=== PATIENT | male | born 1980 ===

== ENCOUNTER 2016-11-09 10:51 | Emergency (ER) | payer MEDICAID ==
[~2016-11-09] VITALS: Ht 167.6 cm; Wt 65.9 kg
[~2016-11-09 10:51] MED LIST: OXYC-302 PO
[2016-11-09 10:56] VITALS: BP 124/74; PULSE 85; RESP 20; O2SAT 100
--- NOTE | 2016-11-09 11:37 | DRSVH ---
PROCEDURE: X-RAY LEFT RIBS, TWO VIEWS ([id number]) INDICATIONS: trauma, pain. TECHNIQUE: 2 views of the left ribs were acquired. COMPARISON: None. FINDINGS: Surgical changes and devices: None. Bones and chest wall: No fractures or dislocations. No suspicious bony lesions. Overlying soft tis sues appear unremarkable. Lungs and pleura: The visualized lung appears clear. No pleural effusions or pneumothorax are visib le. IMPRESSION: No displaced rib fractures identified. Dictated by: Abbi Douglass MD, PhD on 11/09/2016 at 11:32 Approved by: Abbi Douglass MD, PhD on 11/09/2016 at 11:36
--- NOTE | 2016-11-09 11:55 | ED.REPORT ---
HPI-Dental/Mouth Prob Date of Service Nov 09, 2016 ED Provider: Doc,Ed MD History of Present Illness: leaning over dumpster and had left rib pain, Did not fall into dumpster. happened 2 days ago[facility] ususally comes to the ER. Has cavities, states Mom keeps him too busy to go to the dentist. Nursing Notes Stated Complaint: RIB PAIN/UPPER JAW PAIN Chief Complaint: General Complaint Allergies: Coded Allergies: No Known Allergies (Verified , 11/09/16) No Active Prescriptions or Reported Meds General Time Seen by MD: 11:55 Chief Complaint Mouth pain, Other (rib pain) Hx Obtained From: Patient Onset Occurred: 2 days ago Symptom Duration: Since onset Past Medical History Past Medical History Kidney stone Otherwise healthy Denies: Asthma, Diabetes mellitus Past Surgical History Stent placed for kidney stone Smoking History Current Every Day Smoker (1 pack a week for 10 years) Social History Alcohol Use: Denies alcohol use Drug Use: Denies drug use Occupation single lives with mom 11/09/2016 Ambulatory Status Independent Review of Systems Basic Review of Systems Eyes: Vision NL, No discharge Skin: No bruising, No rash, No itch Psychiatric: Normal thought content Physical Exam Initial Vital Signs Vital Signs (First) Date Time Temp Pulse Resp B/P Pulse Ox O2 Delivery O2 Flow Rate FiO2 11/09/16 10:56 36.8 85 20 124/74 100 Room Air Initial VS: Reviewed, Vital signs normal General/Constitutional: Well-developed, Well-nourished Lymphatic: No lymphadenopathy Psychiatric: Mood/affect normal, Behavior normal, Normal thought content ENT: Atraumatic, Airway patent, Mucous membranes moist, Pharynx NL, No pooling of secretions, No trismus, No facial swelling, Gums/dentition NL Neck: Atraumatic, Supple, No meningismus, Full range of motion General/Constitutional: Awake, Alert, No acute distress teeth in good repair, no sign of active cavity or extensive decay Respiratory / Chest: Breath sounds NL, Breath sounds = bilat, No respiratory distress, No rales, No rhonchi, No wheezing, No stridor reporting point tenderness on left rib, able to breath deeply without discomfort. no bruising noted Cardiovascular: Heart rate NL, Regular rhythm, Heart sounds NL, No gallop, No murmurs, No rubs, Cap refill not delayed Neurologic: Oriented X3, Speech NL, No motor deficits, No sensory deficits Re-Eval/Medical Decision Med Decision/Clinical Course 36 year old male presents with c/o of rib pain and mouth pain. X-ray is negative for any fracture, no sign of bruising. Oral exam does not show any sign of infection or swelling. Discharge & Departure Primary Impression: Rib sprain Encounter type: initial encounter Qualified Code: S23.41XA - Sprain of ribs , initial encounter Additional Impression: Chronic dental pain Disposition: Home Additional Instructions: The x-ray looks good. It does not show any sign of rib injury. It is important that you continue with movement. Your teeth are in good repair. I do not see any active cavity or large area of decay. Please use the resources that are listed to seek dental care. Use ibuprofen 800 mg up to 3 times a day for any discomfort. Referrals: NOPCP (PCP) [facility] EDSupervising Provider for APC: Marianne Tran MD copies to: OTHER,PHYSICIAN Nery Gomez Nov 09, 2016 11:55
[2016-11-09 12:26] VITALS: BP 122/77; PULSE 67; RESP 15; O2SAT 100
== END 2016-11-09 12:27 | disposition home or self-care (01) ==
LOC: SED 10:51
DX: S23.41XA Sprain of ribs, initial encounter (principal); K08.89 Other specified disorders of teeth and supporting structures; X50.1XXA Overexertion from prolonged static or awkward postures, initial encounter; Y93.89 Activity, other specified; Y92.9 Unspecified place or not applicable; Y99.8 Other external cause status; F17.200 Nicotine dependence, unspecified, uncomplicated; Z87.442 Personal history of urinary calculi
CPT/HCPCS: 71100; 96372; 99284; J1885